=== PATIENT | female | born 1985 | race Two or more races ===

== ENCOUNTER 2016-12-28 07:34 | Emergency (ER) | payer OTHER ==
[~2016-12-28] VITALS: Ht 160 cm; Wt 79.4 kg
[2016-12-28 08:21] LABS: PATH.CAST-FLAG NOT PRESENT; SPERM-FLAG NOT PRESENT; SRC-FLAG NOT PRESENT; XTAL-FLAG NOT PRESENT; YLC-FLAG NOT PRESENT
[2016-12-28 08:44] LABS: HEMATOCRIT 38.8 % (34.6-47.8); HEMOGLOBIN 13.4 g/dL (11.7-16.4); WHITE BLOOD COUNT 6.7 x10^3/uL (3.4-10)
[2016-12-28 08:59] VITALS: BP 107/63
== END 2016-12-28 10:14 | disposition home or self-care (01) ==
LOC: ED 09:30
DX: O20.0 Threatened abortion (principal); Z3A.08 8 weeks gestation of pregnancy
CPT/HCPCS: 36415; 76801; 81001; 84702; 85025; 86901; 87086; 99285